=== PATIENT | male | born 1940 | race Caucasian/White ===

== ENCOUNTER → 2016-11-10 | Outpatient (CLI) | payer MEDICARE ==
[2016-11-10 09:02] LABS: AUTOMATED NEUTROPHIL # 3.6 TH/MM3 (1.8-7.7); BASOPHIL # 0.1 TH/MM3 (0-0.2); BASOPHIL % 0.9 % (0.0-2.0); EOSINOPHIL # 0.2 TH/MM3 (0-0.4); EOSINOPHIL % 2.8 % (0.0-4.0); HEMATOCRIT 41.6 % (39.0-51.0); HEMO FLAGS DIFF FINAL; LYMPH % 22.3 % (9.0-44.0); LYMPHOCYTE # 1.3 TH/MM3 (1.0-4.8); MEAN CELL VOLUME 86.9 FL (80.0-100.0); MEAN CORPUSCULAR HEMOGLOBIN 29.6 PG (27.0-34.0); MONO % 10.1 % (0.0-8.0); NEUT % 63.9 % (16.0-70.0); PLATELET COUNT 329 TH/MM3 (150-450); RED BLOOD COUNT 4.78 MIL/MM3 (4.50-5.90); RED CELL DISTRIBUTION WIDTH 13.7 % (11.6-17.2); WHITE BLOOD COUNT 5.7 TH/MM3 (4.0-11.0)
[2016-11-10 09:03] LABS: BLOOD, URINE NEG (NEG); COMMENT (UR) CULT NOT INDICATED; CULTURE IF INDICATED CULT NOT INDICATED; GLUCOSE,URINE NEG (NEG); KETONE, URINE NEG (NEG); MUCUS URINE FEW /lpf (OCC); NITRITE,URINE NEG (NEG); URINE COLOR YELLOW (YELLW/STRAW)
[2016-11-10 09:32] LABS: ANION GAP 9 MEQ/L (5-15); AST (GOT) 21 U/L (15-37); BICARBONATE 25.3 MEQ/L (21.0-32.0); BLOOD UREA NITROGEN 19 MG/DL (7-18); CHLORIDE 104 MEQ/L (98-107); GLOMERULAR FILTRATION RATE 67 ML/MIN (>89); GLUCOSE,FASTING 98 MG/DL (74-99); SODIUM (NA) 138 MEQ/L (136-145)
[2016-11-10 09:43] LABS: ALKALINE PHOSPHATASE 54 U/L (45-117); ALT (GPT) 30 U/L (12-78); HDL CHOLESTEROL 112.2 MG/DL (40.0-60.0); LDL CHOLESTEROL 73 MG/DL (0-99); TOTAL BILIRUBIN ADULT 0.9 MG/DL (0.2-1.0)
== END ==
LOC: ELAB 07:06
PROVIDERS: ATTEND Internal Medicine
DX: E78.00 Pure hypercholesterolemia, unspecified (principal); I10 Essential (primary) hypertension
CPT/HCPCS: 36415; 80053; 80061; 81001; 84443; 85025

== ENCOUNTER → 2017-05-16 | Outpatient (CLI) | payer MEDICARE ==
[2017-05-16 09:26] LABS: ANION GAP 6 MEQ/L (5-15); AST (GOT) 21 U/L (15-37); BICARBONATE 27.3 MEQ/L (21.0-32.0); BLOOD UREA NITROGEN 19 MG/DL (7-18); CHLORIDE 105 MEQ/L (98-107); GLOMERULAR FILTRATION RATE 87 ML/MIN (>89); GLUCOSE,FASTING 116 MG/DL (74-99); POTASSIUM 4.2 MEQ/L (3.5-5.1); SODIUM (NA) 138 MEQ/L (136-145)
[2017-05-16 09:27] LABS: ALT (GPT) 33 U/L (12-78)
[2017-05-16 09:29] LABS: ALKALINE PHOSPHATASE 58 U/L (45-117); HDL CHOLESTEROL 103.4 MG/DL (40.0-60.0); LDL CHOLESTEROL 62 MG/DL (0-99); TOTAL BILIRUBIN ADULT 0.8 MG/DL (0.2-1.0)
== END ==
LOC: ELAB 07:08
PROVIDERS: ATTEND Internal Medicine
DX: E78.00 Pure hypercholesterolemia, unspecified (principal); Z12.5 Encounter for screening for malignant neoplasm of prostate
CPT/HCPCS: 36415; 80053; 80061; G0103

== ENCOUNTER → 2017-12-20 | Outpatient (CLI) | payer MEDICARE ==
[2017-12-20 10:39] LABS: ALBUMIN 3.8 GM/DL (3.4-5.0); AST (GOT) 21 U/L (15-37); BICARBONATE 25.1 MEQ/L (21.0-32.0); BLOOD UREA NITROGEN 24 MG/DL (7-18); CALCIUM 9.4 MG/DL (8.5-10.1); CHLORIDE 106 MEQ/L (98-107); CHOLESTEROL 186 MG/DL (120-200); CREATININE 1.12 MG/DL (0.60-1.30); GLOMERULAR FILTRATION RATE 64 ML/MIN (>89); GLUCOSE,FASTING 104 MG/DL (74-99); SODIUM (NA) 139 MEQ/L (136-145)
[2017-12-20 11:10] LABS: ALKALINE PHOSPHATASE 58 U/L (45-117); ALT (GPT) 29 U/L (12-78); CHOLESTEROL/ HDL RATIO 2.19 RATIO; HDL CHOLESTEROL 84.9 MG/DL (40.0-60.0); LDL CHOLESTEROL 87 MG/DL (0-99); TOTAL BILIRUBIN ADULT 0.7 MG/DL (0.2-1.0); TOTAL PROTEIN 7.1 GM/DL (6.4-8.2); TRIGLYCERIDES 69 MG/DL (42-150)
[2017-12-20 18:44] LABS: HEMOGLOBIN A1C 5.6 % (4.3-6.0)
== END ==
LOC: ELAB 06:53
PROVIDERS: ATTEND Internal Medicine
DX: R53.83 Other fatigue (principal); I10 Essential (primary) hypertension; R73.01 Impaired fasting glucose; E78.00 Pure hypercholesterolemia, unspecified
CPT/HCPCS: 36415; 80053; 80061; 82607; 83036; 84443

== ENCOUNTER → 2018-01-18 | Outpatient (CLI) | payer MEDICARE ==
--- NOTE | 2018-01-18 15:19 | RADRPT ---
EXAM DATE/TIME: 01/18/2018 13:52 [place] COMPARISON: No previous studies available for comparison. INDICATIONS : Lower back pain for 3 years. MEDICAL HISTORY : Carcinoma, prostate. Hypertension. SURGICAL HISTORY : Tonsillectomy. prostate seeds, [employer] pacemaker ENCOUNTER: [employer] ACUITY: > 1 year PAIN SCORE: 3/10 LOCATION: lower back TECHNIQUE: Multiplanar multisequence MRI of the lumbar spine was performed without contrast. FINDINGS: The most caudal appearing lumbar vertebra is numbered as L5. VERTEBRAE: There are degenerative changes throughout the lumbar spine. There is disc dehydration with disc space narrowing at multiple levels from L1-L5. There is mild discogenic edema at L1-2. No compression frac tures are demonstrated. No spondylolisthesis is demonstrated. CONUS: Normal level and configuration. T12-L1: The thecal sac has a normal diameter. No evidence of disc bulge or protrusion. The neural foramina are patent bilaterally. L1-L2: Broad-based bulging and mild right and left lateral bulging. There is narrowing of the neural foramin a bilaterally, left greater than right. Bilateral facet arthritis. L2-L3: Moderate diffuse broad-based bulging and left lateral bulging with narrowing of the left neural rajan blayne. The right neural foramina is patent. There is bilateral facet arthritis and hypertrophy ligament s of flava. Moderate spinal canal stenosis. L3-L4: Moderate diffuse broad-based bulging and left lateral bulging with narrowing of the left neural rajan blayne. There is mild narrowing of the right neural foramina. There is bilateral facet arthritis and a p ortion of the ligamentum flavum. Focal moderate to severe spinal canal stenosis. L4-L5: Mild to moderate diffuse broad-based bulging and narrowing of the neural foramina bilaterally. Bilate ral facet arthritis. No significant spinal canal stenosis. L5-S1: Diffuse broad-based bulging with mild narrowing of the neural foramina bilaterally. Bilateral facet a rthritis. No significant spinal canal stenosis. CONCLUSION: 1. Moderate to severe spinal canal stenosis at L3-4. 2. Moderate spinal canal stenosis at L2-3. 3. 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 4. Bilateral facet arthritis at multiple levels. Jonathan Root MD on January 18, 2018 at 15:13 Board Certified Radiologist. This report was verified electronically.
== END ==
LOC: HRAD 13:01
PROVIDERS: ATTEND Orthopaedic Surgery Sports Medicine
DX: M54.5 Low back pain (principal); G89.29 Other chronic pain
CPT/HCPCS: 72148